=== PATIENT | female | born 1940 | race Caucasian/White ===

== ENCOUNTER → 2017-07-14 | Outpatient (CLI) | payer MEDICARE ==
[~2017-07-14] MED LIST: ALEN70TA5 PO; CALC-534 PO; CHOL200074 PO; FLUT9.9S NS; LEVO75TA5 PO; MULT-658 PO; OMEP-110 PO
== END | disposition home or self-care (01) ==
LOC: STAR 12:56
PROVIDERS: ATTEND Internal Medicine
DX: Z01.818 Encounter for other preprocedural examination (principal); K83.1 Obstruction of bile duct
CPT/HCPCS: 93005